=== PATIENT | female | born 1995 | race Caucasian/White ===

== ENCOUNTER 2024-05-24 16:57 | Observation (INO) | payer BC, SELFPAY ==
[2024-05-24] VITALS (7 sets, daily range): BP systolic 103–121; BP diastolic 65–76; PULSE 71–127; RESP 14–20; TEMP 36.5–36.9; O2SAT 96–100; BMI 24.7
--- NOTE | ~2024-05-24 | CT_ITS ---
EXAMINATION: CT abdomen pelvis w con DATE: 05/24/2024 20:06 INDICATION: abdominal pain TECHNIQUE: Computed tomography (CT) of the abdomen and pelvis was performed with 100 mL Omnipaque-350 intravenous contrast. Automated exposure control and iterative reconstruction technique were employe d. The dose-length product was 315.61 mGy-cm. COMPARISON: None. FINDINGS: Lower thorax: Unremarkable Liver: Normal. Biliary/Gallbladder: Gallbladder is normal. No bile duct dilation. Pancreas: No mass or duct dilation. Spleen: Normal. Adrenals:No mass. Kidneys: No suspicious mass, obstructing stone, or hydronephrosis. GI tract: No small or large bowel dilation. Appendix dilated to 1.8 cm. Large appendicolith in the ne ck of the appendix. The wall of the appendix is not discretely visualized in the region of the append icolith. The remainder of the wall is hyperemic. Mesentery/Peritoneum: No ascites, mass, or free air. Retroperitoneum: No mass. Pelvis: Moderate volume fluid in the deep pelvis and adjacent to the neck of the appendix, intermedia te density (34 HU) with the suggestion of mild peritoneal enhancement. Normal uterus and bilateral ov francis. Normal urinary bladder. Soft Tissues: Soft tissues and body wall unremarkable. Bones: No acute osseous finding. IMPRESSION: Acute appendicitis, with findings concerning for rupture. Nonsimple periappendiceal/deep pelvic fluid collection with mild rim enhancement may represent bowel content/early abscess. Results reported telephonically to Dr. Brenna Anguiano by Dr. Padilla at 8:15 PM on 05/24/2024. Reviewed, dictated and finalized at location K. [facility] IMPRESSION: Acute appendicitis, with findings concerning for rupture. Nonsimple periappendi ceal/deep pelvic fluid collection with mild rim enhancement may represent bowel content/early abscess. Results reported telephonically to Dr. Brenna Anguiano by Dr. Padilla at 8:15 PM on 05/24/2024.
[2024-05-24 19:16] LABS: Basophils Percent Auto 0.3 % (0.2-1.2); Hemoglobin 14.6 g/dL (12.0-15.0); Immature Granulocyte Absolute 0.05 K/mm3 (0.00-0.031); Immature Granulocyte Percent A 0.4 % (0-0.5); Lymphocytes Absolute Auto 0.55 K/mm3 (0.9-3.2); Lymphocytes Percent Auto 4.1 % (18.3-44.2); Mean Corpuscular Hemoglobin 31.1 pg (26-34); Mean Corpuscular Volume 91.5 fl (80-100); Mean Platelet Volume 11.6 fl (7.4-10.4); Monocytes Absolute Auto 0.8 K/mm3 (0.1-0.6); Monocytes Percent Auto 5.6 % (2.6-8.5); Neutrophils Absolute Auto 12.1 K/mm3 (1.3-6.7); Neutrophils Percent Auto 89.6 % (45.5-73.1); Platelet Count Result 234 k/mm3 (150-375); Red Cell Distribution Width 12.3 % (11.5-14.5); White Blood Count 13.5 K/mm3 (4.5-10.0)
[2024-05-24 19:26] LABS: BEDSIDEPREGUCG Negative (Negative)
[2024-05-24 19:27] LABS: Add Urine Microscopic? YES; Appearance Urine Clear (Clear); Bacteria Urine Rare /hpf; Bilirubin Urine Negative (Negative); Blood Urine Non-Hemolyzed Trace (Negative); Color Urine Dark Yellow (Yellow); Glucose Urine UA Negative (Negative); Ketones Urine 4+ mg/dL (Negative); Leukocyte Esterase Ur Negative LEU/UL (Negative); Nitrate Urine Negative (Negative); Non Pathogenic Casts 0-2; Protein Urine 1+ mg/dL (Negative); Specific Grav Ur 1.034 (1.001-1.035); Squamous Epithelial Cell Urine Occasional /hpf (Few); WBC Urine 0-5 /hpf (0-3)
[2024-05-24 19:29] LABS: Alanine Aminotransferase 14 U/L (6-35); Albumin Level 4.6 g/dL (3.5-5.1); Alkaline Phosphatase 76 U/L (38-126); Anion Gap 13 mmol/L (4-12); Aspartate Amino Transferase 17 U/L (14-36); Bilirubin,Total 1.2 mg/dL (0.2-1.3); Blood Urea Nitrogen 9 mg/dL (7-17); Calcium 9.6 mg/dL (8.4-10.2); Carbon Dioxide 19 mmol/L (22-30); Chloride 105 mmol/L (98-107); Estimated CRCL calculation 98 ml/min; Estimated Glomerular Filt Rate > 60; Glucose 109 mg/dL (65-110); Lipase 57 U/L (23-300); Potassium 3.6 mmol/L (3.4-5.0); Sodium 137 mmol/L (137-145)
--- NOTE | 2024-05-24 19:33 | ED_ITS ---
HPI - General Adult General Chief complaint: Abdominal Pain Stated complaint: abdominal pain Time Seen by Provider: 05/24/24 19:08 History of Present Illness HPI narrative: patient is a 28-year-old female presents emergency department with chief complaint of abdominal pain 8 patient reports that on Thursday she started having diarrhea started ectopic because he had vomited the patient states the diarrhea is tapered off and she had 1 episode of vomiting prior to arrival in the emergency department the patient states that now she has a severe pain that has developed in the lower quadrants of her abdomen the patient reports that it is worsened by movement and improved by rest. The patient denies fever reports no prior surgery on her abdomen reports that she is currently on Depo Related Data Allergies Allergy/AdvReac Type Severity Reaction Status Date / Time No Known Allergies Allergy Verified 05/24/24 19:24 Review of Systems Review of Systems: A 10 system review of systems was completed on the patient and is negative exc ept for what is stated in the HPI. Nursing and ancillary documentation was reviewed. Exam Narrative: GENERAL: Well-appearing, well-nourished, and in no acute distress. HEAD: Normocephalic, atraumatic. EYES: PERRLA and EOMI. ENT: Nares clear, no rhinorrhea or epistaxis. Mucous membranes moist. NECK: Supple. CHEST: Clear to auscultation. No respiratory distress. HEART: Regular rate and rhythm. No murmur heard. Normal peripheral pulses. ABDOMEN: Soft, diffuse tenderness to palpation, nondistended, normal active bowel sounds. EXTREMITIES: Normal range of motion. No edema. SKIN: Warm, dry, no rash. NEURO: No focal deficits. Alert and oriented x3. PSYCH: Normal mood and affect. Course Vital Signs Vital signs: Vital Signs Temperature 36.5 C 05/24/24 17:00 Pulse Rate 127 H 05/24/24 17:00 Respiratory Rate 20 05/24/24 17:00 Blood Pressure 118/73 05/24/24 17:00 Pulse Oximetry 98 05/24/24 17:00 Temperature 36.5 C 05/24/24 17:00 Pulse Rate 127 H 05/24/24 17:00 Respiratory Rate 20 05/24/24 17:00 Blood Pressure 118/73 05/24/24 17:00 Pulse Oximetry 98 05/24/24 17:00 Medical Decision Making [facility] Narrative Medical decision making narrative: differential diagnosis includes intra-abdominal infection, gastroenteritis, colitis, appendicitis, diverticulitis laboratory studies were obtained on the patient showed white count of 13.5 electrolytes are within normal limits urinalysis showed 11 20 red blood cells but no white blood cells CT scan of the abdomen pelvis showed Acute appendicitis, with findings concerning for rupture. Nonsimple periappendiceal/deep pelvic fluid collection with mild rim enhancement may represent bowel content/early abscess. patient given a dose of Zosyn in the emergency department the case was discussed with Dr. Mcclellan who accepted patient to the surgical service Vital Signs Vital Signs: Vital Signs Temperature 36.5 C 05/24/24 17:00 Pulse Rate 127 H 05/24/24 17:00 Respiratory Rate 20 05/24/24 17:00 Blood Pressure 118/73 05/24/24 17:00 Pulse Oximetry 98 05/24/24 17:00 Temperature 36.5 C 05/24/24 17:00 Pulse Rate 127 H 05/24/24 17:00 Respiratory Rate 20 05/24/24 17:00 Blood Pressure 118/73 05/24/24 17:00 Pulse Oximetry 98 05/24/24 17:00 Lab Data 05/24/24 19:00 05/24/24 19:00 Labs: Lab Results 05/24/24 05/24/24 05/24/24 Range/Units 19:00 19:06 19:24 WBC 13.5 H (4.5-10.0) K/mm3 RBC 4.70 (4.2-5.4) M/mm3 Hgb 14.6 (12.0-15.0) g/dL Hct 43.0 (37.0-47.0) % MCV 91.5 (80-100) fl MCH 31.1 (26-34) pg MCHC 34.0 (32-36) g/dl RDW 12.3 (11.5-14.5) % Plt Count 234 (150-375) k/mm3 MPV 11.6 H (7.4-10.4) fl Immature Gran % (Auto) 0.4 (0-0.5) % Neut % (Auto) 89.6 H (45.5-73.1) % Lymph % (Auto) 4.1 L (18.3-44.2) % [place] % (Auto) 5.6 (2.6-8.5) % Eos % (Auto) 0.0 (0-4.4) % Baso % (Auto) 0.3 (0.2-1.2) % Lymph # (Auto) 0.55 L (0.9-3.2) K/mm3 [place] # (Auto) 0.8 H (0.1-0.6) K/mm3 Eos # (Auto) 0.0 (0-0.3) K/mm3 Baso # (Auto) 0.0 (0.0-0.1) K/mm3 Abs Immat Gran (auto) 0.05 H (0.00-0.031) K/mm3 Absolute Neuts (auto) 12.1 H (1.3-6.7) K/mm3 Absolute Nucleated RBC 0.000 (0.0-0.012) K/mm3 Nucleated RBC % 0.0 (0.0-0.2) % Sodium 137 (137-145) mmol/L Potassium 3.6 (3.4-5.0) mmol/L Chloride 105 (98-107) mmol/L Carbon Dioxide 19 L (22-30) mmol/L Anion Gap 13 H (4-12) mmol/L BUN 9 (7-17) mg/dL Creatinine 0.70 (0.7-1.0) mg/dL Estim Creat Clear Calc 98 ml/min Estimated GFR > 60 (59 - ) Glucose 109 (65-110) mg/dL Calcium 9.6 (8.4-10.2) mg/dL Total Bilirubin 1.2 (0.2-1.3) mg/dL AST 17 (14-36) U/L ALT 14 (6-35) U/L Alkaline Phosphatase 76 (38-126) U/L Total Protein 8.0 (6.3-8.2) g/dL Albumin 4.6 (3.5-5.1) g/dL Lipase 57 (23-300) U/L Urine Color Dark yellow (Yellow) Urine Appearance Clear (Clear) Urine pH 6.0 (5.0-9.0) Ur Specific [place] 1.034 (1.001-1.035) Urine Protein 1+ H (Negative) mg/dL Urine Glucose (UA) Negative (Negative) mg/dL Urine Ketones 4+ H (Negative) mg/dL Ur Blood (Man) Non-hemolyzed trace H (Negative) Urine Nitrate Negative (Negative) Urine Bilirubin Negative (Negative) Urine Urobilinogen 1.0 (<2.0) mg/dL Leukocyte Esterase Rfl Negative (Negative) CLAUDIO/UL Urine RBC 11-20 H (0-2) /hpf Urine WBC 0-5 (0-3) /hpf Ur Squamous Epith Cells Occasional (Few) /hpf Urine Bacteria Rare /hpf Urine Casts 0-2 POC Urine HCG, Qual Negative (Negative) Discharge Plan Discharge Clinical Impression: Acute appendicitis Patient Disposition: Still a Patient Condition: Stable Instructions: Antibiotic Form Follow-up/Referrals: UNKNOWN,DOCTOR [Primary Care Provider] - Time of Disposition: 20:23
[2024-05-24] MEDS: ONDANSETRON INJ 4 MG/2 ML VIAL IV PUSH (19:49)
[2024-05-24] MEDS: SODIUM CHLORIDE 0.9% IV 1,000 ML 999 ML IV CONT (19:49)
[2024-05-24] MEDS: MORPHINE SULFATE (*CRX) 4 MG/ML INJ IV PUSH ×2 (19:53→21:48)
[2024-05-24] MEDS: Please add drug allergy info to patient profile. 1 EACH XX (19:54)
[2024-05-24] MEDS: PIPERACILLN/TAZ 3.375GM/NS50ML 3.375 GM/50 ML BAG IVPB (20:58)
--- NOTE | 2024-05-24 21:31 | ADMGEN ---
This patient, Holly Faria, was admitted to 3 [facility] Room 311-01. Patient/family oriented to hospital policies and general routines including ID bracelet, bed and alarms, visiting hours, pain management, procedures, bathroom and other care routines, personal items, smoking policy, room service/diet, and visiting hours. Information on how to activate the Rapid Response Team has been discussed. Patient/Family are encouraged to report perceived risks to care and to ask questions if they do not understand what they are told or what they should do.
[2024-05-24] MEDS: SODIUM CHLORIDE 0.9% IV 1,000 ML 125 ML IV CONT (21:51)
--- NOTE | 2024-05-24 22:02 | PC.NURSE ---
Admission report provided to PATTI Breaux.
[2024-05-25] VITALS (13 sets, daily range): BP systolic 94–122; BP diastolic 50–75; PULSE 74–103; RESP 14–20; TEMP 36.1–37.3; O2SAT 96–100
[2024-05-25] MEDS: ALPRAZolam (*CRX) 0.25 MG TABLET PO (01:48)
[2024-05-25] MEDS: oxyCODONE/ACETAMINOPHEN (*CRX) 10-325 MG TABLET 1 TAB PO ×2 (01:48→05:33)
[2024-05-25] MEDS: PIPERACILLN/TAZ 3.375GM/NS50ML 3.375 GM/50 ML BAG IVPB ×4 (01:51→19:59)
[2024-05-25] MEDS: SODIUM CHLORIDE 0.9% IV 1,000 ML 125 ML IV CONT (05:34)
[2024-05-25] MEDS: HYDROmorphone HCL INJ (*CRX) 1 MG/ML SYR IV PUSH ×4 (07:45→23:30)
--- NOTE | 2024-05-25 09:58 | P.HP_ITS ---
H&P: HPI History of Present Illness Date/Time: 05/25/24 09:58 Chief Complaint: Right lower quadrant abdominal pain Narrative: This is a 28-year-old who presented to the ED last night for evaluation of right lower quadrant abdominal pain. She reports having an onset of diarrhea, nausea, and vomiting 3 days ago. A few hours after symptoms started, she developed periumbilical and upper abdominal pain. She presented to an urgent care who provided her with anti-nausea medication. Her nausea, vomiting, and diarrhea improved, but her abdominal pain got worse. Over the next 2 days, her pain progressively became worse and was aggravated with any movement or walking. She called her PCP, who recommended going to the ED. Labs showed a white blood cell count [id number]. In the ED, she was afebrile and tachycardic with a heart rate in the 120s. CT scan of the abdomen and pelvis showed acute appendicitis with findings concerning for rupture, and a possible periappendiceal/deep pelvic fluid collection with that may represent an early abscess. She had a negative urine test. UA showed 1+ leukocytes and mildly elevated wbc's. She denies any urinary symptoms. Blood cultures were ordered and she was admitted for surgical evaluation. She has been started on IV Zosyn. She reports no pain relief with morphine or Dilaudid. She is very uncomfortable. Denies any nausea. No previous abdominal surgeries. Review of Systems Review of Systems: All systems reviewed & are unremarkable except as noted in HPI and below PMFSH Past Medical History Medical History Anxiety and depression Asthma Surgical History Surgical History History of ankle surgery Family History Family History Father Diabetes mellitus Hypertension Social History Social History Smoking status: Never smoker Alcohol intake: current Drinks per week: 2 Substance use: never Do You Feel Safe in your Home?: Yes Lack of Transportation: No Lack of Food: Never True Current Housing: I Have Housing Concerned About Future Housing: No Difficulty Paying Gas/Electric Bills: No Difficulty Paying for Meds: No Currently Unemployed: No Education: Master's Degree or Higher Difficulty w/ Childcare or Family Care: No Spiritual care concerns: No Meds Home Medications and Allergies Home Medications Medication Instructions Recorded Confirmed Type divalproex 250 mg tablet,delayed 252 mg PO DAILY 05/24/24 05/24/24 History release medroxyprogesterone 150 mg/mL 150 mg IM [id number] 05/24/24 05/24/24 History intramuscular syringe vilazodone 20 mg tablet 20 mg PO DAILY 05/24/24 05/24/24 History Allergies Allergy/AdvReac Type Severity Reaction Status Date / Time No Known Allergies Allergy Verified 05/24/24 19:24 Vital Signs Vital Signs - 24 hr 05/24/24 17:00 05/24/24 18:43 05/24/24 18:45 Temperature 97.7 F Pulse Rate 127 H Respiratory Rate 20 Blood Pressure 118/73 103/68 106/65 Pulse Oximetry 98 96 98 Oxygen Delivery 05/24/24 19:01 05/24/24 20:19 05/24/24 20:31 Temperature Pulse Rate 71 Respiratory Rate 14 Blood Pressure 109/76 115/66 121/74 Pulse Oximetry 100 98 Oxygen Delivery 05/24/24 21:42 05/24/24 22:39 05/25/24 05:04 Temperature 98.5 F 97.9 F Pulse Rate 88 82 Respiratory Rate 14 14 Blood Pressure 105/66 99/50 L Pulse Oximetry 98 98 Oxygen Delivery Room Air Exam Const: General: comfortable and no acute distress Nutritional Appearance: average body habitus Orientation/consciousness: patient oriented x3 HENMT: Head: normocephalic and atraumatic Ears: hearing grossly normal bilaterally Mouth: Yes moist mucous membranes Eyes: General: appearance normal, both eyes and all related structures Pupils: Equal, round and reactive pupils present Neck: Neck: normal visual inspection and full ROM Resp: Effort & Inspection: no respiratory distress Auscultation: clear to auscultation bilaterally Cardio: Rate: regular rate Rhythm: regular rhythm Heart sounds: S1 normal heart sound present and S2 normal heart sound present GI: Inspection: non-distended GI Palp: Yes Soft to palpation, Yes Tenderness to palpation present (GI) (diffuse tenderness with more focal TTP/guarding in RLQ), Yes Guarding due to palpation present (GI) (RLQ), Yes No hepatosplenomegaly present, No Hernia present and Yes Rebound tenderness present Auscultation: Hypoactive bowel sounds present Skin: General skin exam: normal color Neuro: General: moves all extremities and no focal motor deficits Speech: normal speech Motor exam (neuro): 5/5 motor strength present throughout Extrem: General: normal to inspection and no edema Psych: Mental Status: mental status grossly normal Attitude: cooperative Insight: Good insight present (Psych) Judgement: Good judgement present (Psych) H&P: Results Labs Labs: Short CBC 05/24/24 Range/Units 19:00 WBC 13.5 H (4.5-10.0) K/mm3 Hgb 14.6 (12.0-15.0) g/dL Hct 43.0 (37.0-47.0) % Plt Count 234 (150-375) k/mm3 BMP 05/24/24 19:00 Sodium 137 Potassium 3.6 Chloride 105 Carbon Dioxide 19 L BUN 9 Creatinine 0.70 Glucose 109 Calcium 9.6 Liver Function 05/24/24 Range/Units 19:00 Total Bilirubin 1.2 (0.2-1.3) mg/dL AST 17 (14-36) U/L ALT 14 (6-35) U/L Alkaline Phosphatase 76 (38-126) U/L Albumin 4.6 (3.5-5.1) g/dL Urine 05/24/24 Range/Units 19:06 Urine Color Dark yellow (Yellow) Urine Appearance Clear (Clear) Urine pH 6.0 (5.0-9.0) Ur Specific [place] 1.034 (1.001-1.035) Urine Protein 1+ H (Negative) mg/dL Urine Glucose (UA) Negative (Negative) mg/dL Imaging CT scan - abdomen: Radiologist's impression: ITS Impressions Abdomen/Pelvis CT 05/24/24 20:08 IMPRESSION: Acute appendicitis, with findings concerning for rupture. Nonsimple periappendiceal/deep pelvic fluid collection with mild rim enhancement may represent bowel content/early abscess. Results reported telephonically to Dr. Brenna Anguiano by Dr. Padilla at 8:15 PM on 05/24/2024. Assessment and Plan Assessment and plan (1) Acute appendicitis: Code(s): K35.80 - Unspecified acute appendicitis Status: Acute Assessment and Plan: * CT scan reviewed and discussed with the patient. There is evidence of acute appendicitis, likely perforated with possible abscess. We discussed treatment options in detail. Discussed the case with Dr. Mcclellan who recommends proceeding with a laparoscopic appendectomy, possible open. Description of the procedure, risks, benefits, alternatives, and expected recovery were discussed. She agrees to proceed with surgery * Continue IV antibiotics, IV fluids, NPO, and proceed for urgent appendectomy today * Will add ketorolac IV to help with pain control (2) Sepsis: Code(s): A41.9 - Sepsis, unspecified organism Status: Acute Assessment and Plan: * Secondary to perforated appendicitis. Continue IV antibiotics. Blood cultures pending. Proceed to OR for source control. Plan I have discussed the patient's case and plan of care with Dr. Mcclellan.
[2024-05-25] MEDS: KETOROLAC 30 MG/ML VIAL (*BKC) IV PUSH (10:52)
--- NOTE | 2024-05-25 12:18 | WPDHPUPDATE1 ---
History and Physical Update Update Date/Time: 05/25/24 12:18 History and Physical has been reviewed, including an updated exam of the patient. There are NO changes in the patient's condition. Risks, benefits, and alternatives have been discussed and questions answered. Patient agrees to proceed with procedure.
[2024-05-25] MEDS: SODIUM CHLORIDE 0.9% IV 1,000 ML 150 ML IV CONT (13:50)
--- NOTE | 2024-05-25 14:15 | PC.NURSE ---
To OR via stretcher.
[2024-05-25] MEDS: LACTATED RINGERS 1,000 ML 30 ML IV CONT ×2 (14:30→16:03)
[2024-05-25] MEDS: ACETAMINOPHEN 500 MG TABLET 1000 MG PO (14:31)
--- NOTE | 2024-05-25 14:45 | WPDANESEPPF ---
Anes - Initial Pre Proc Eval Procedure: Operation Date: 05/25/24 16:00 Proposed Procedures p Laparoscopic Appendectomy - Araceli Mcclellan MD Date/Time: 05/25/24 14:45 Surgeon: Araceli Mcclellan MD Pre Op Diagnosis: Acute appendicitis Patient Data Age: 28 Gender: F Height: 1.68 m Weight: 69.4 kg Last Vital Signs Temp 98.7 F 05/25/24 11:00 Pulse 89 05/25/24 11:00 Resp 16 05/25/24 11:00 BP 122/75 05/25/24 11:00 Pulse Ox 100 05/25/24 11:00 O2 Del Method Room Air 05/25/24 08:00 Allergies Allergy/AdvReac Type Severity Reaction Status Date / Time No Known Allergies Allergy Verified 05/24/24 19:24 Home Medications Medication Instructions Recorded Confirmed Type divalproex 250 mg tablet,delayed 252 mg PO DAILY 05/24/24 05/24/24 History release medroxyprogesterone 150 mg/mL 150 mg IM [id number] 05/24/24 05/24/24 History intramuscular syringe vilazodone 20 mg tablet 20 mg PO DAILY 05/24/24 05/24/24 History Laboratory Tests 05/24/24 05/24/24 05/24/24 19:00 19:06 19:24 WBC 13.5 H K/mm3 (4.5-10.0) RBC 4.70 M/mm3 (4.2-5.4) Hgb 14.6 g/dL (12.0-15.0) Hct 43.0 % (37.0-47.0) MCV 91.5 fl (80-100) MCH 31.1 pg (26-34) MCHC 34.0 g/dl (32-36) RDW 12.3 % (11.5-14.5) Plt Count 234 k/mm3 (150-375) MPV 11.6 H fl (7.4-10.4) Immature Gran % (Auto) 0.4 % (0-0.5) Neut % (Auto) 89.6 H % (45.5-73.1) Lymph % (Auto) 4.1 L % (18.3-44.2) [place] % (Auto) 5.6 % (2.6-8.5) Eos % (Auto) 0.0 % (0-4.4) Baso % (Auto) 0.3 % (0.2-1.2) Lymph # (Auto) 0.55 L K/mm3 (0.9-3.2) [place] # (Auto) 0.8 H K/mm3 (0.1-0.6) Eos # (Auto) 0.0 K/mm3 (0-0.3) Baso # (Auto) 0.0 K/mm3 (0.0-0.1) Abs Immat Gran (auto) 0.05 H K/mm3 (0.00-0.031) Absolute Neuts (auto) 12.1 H K/mm3 (1.3-6.7) Absolute Nucleated RBC 0.000 K/mm3 (0.0-0.012) Nucleated RBC % 0.0 % (0.0-0.2) Sodium 137 mmol/L (137-145) Potassium 3.6 mmol/L (3.4-5.0) Chloride 105 mmol/L (98-107) Carbon Dioxide 19 L mmol/L (22-30) Anion Gap 13 H mmol/L (4-12) BUN 9 mg/dL (7-17) Creatinine 0.70 mg/dL (0.7-1.0) Estim Creat Clear Calc 98 ml/min Estimated GFR > 60 (59 - ) Glucose 109 mg/dL (65-110) Calcium 9.6 mg/dL (8.4-10.2) Total Bilirubin 1.2 mg/dL (0.2-1.3) AST 17 U/L (14-36) ALT 14 U/L (6-35) Alkaline Phosphatase 76 U/L (38-126) Total Protein 8.0 g/dL (6.3-8.2) Albumin 4.6 g/dL (3.5-5.1) Lipase 57 U/L (23-300) Urine Color Dark yellow (Yellow) Urine Appearance Clear (Clear) Urine pH 6.0 (5.0-9.0) Ur Specific [place] 1.034 (1.001-1.035) Urine Protein 1+ H mg/dL (Negative) Urine Glucose (UA) Negative mg/dL (Negative) Urine Ketones 4+ H mg/dL (Negative) Ur Blood (Man) Non-hemolyzed trace H (Negative) Urine Nitrate Negative (Negative) Urine Bilirubin Negative (Negative) Urine Urobilinogen 1.0 mg/dL (<2.0) Leukocyte Esterase Rfl Negative CLAUDIO/UL (Negative) Urine RBC 11-20 H /hpf (0-2) Urine WBC 0-5 /hpf (0-3) Ur Squamous Epith Cells Occasional /hpf (Few) Urine Bacteria Rare /hpf Urine Casts 0-2 POC Urine HCG, Qual Negative (Negative) Patient hx anesthesia problems: none Family hx anesthesia problems: none Results Review: All pre-operative results and documents have been reviewed as part of the pre-operative evaluation. [facility] Past Medical History Medical History Anxiety and depression Asthma Surgical History Surgical History History of ankle surgery Family History Family History Father Diabetes mellitus Hypertension Social History Social History Smoking status: Never smoker Alcohol intake: current Drinks per week: 2 Substance use: never Do You Feel Safe in your Home?: Yes Lack of Transportation: No Lack of Food: Never True Current Housing: I Have Housing Concerned About Future Housing: No Difficulty Paying Gas/Electric Bills: No Difficulty Paying for Meds: No Currently Unemployed: No Education: Master's Degree or Higher Difficulty w/ Childcare or Family Care: No Spiritual care concerns: No Anes - Eval Final PreProcedure Day of Procedure 05/25/24 14:45 Patient weight: normal Heart: regular rate and rhythm Lungs: clear to auscultation Airway: Mallampati scale class II Neurological: alert and oriented Last oral intake: >/= 8 hours ASA classification: II Emergent: yes Anesthetic plan: proceed Anesthesia type and monitoring: general ETT and standard monitoring Results Review: All pre-operative results and documents have been reviewed as part of the pre-operative evaluation. Overall healthy 28 yo female. Pt has had recent URI w chronic cough approx 2 weeks ago but improving. Now w acute appendicitis. Informed Consent: The patient's anesthetic plan and its attendant risks and benefits were discussed with the patient/family/POA. Questions were solicited and answers provided to the satisfaction of the patient/family/POA.
[2024-05-25] MEDS: BUPIVACAINE/EPINEPHRINE 0.5% 50 ML VIAL 30 ML INFILTRATE (15:31)
--- NOTE | 2024-05-25 16:07 | P.OP_ITS ---
Procedure Note - Detailed Date of Procedure 05/25/24 Pre-op Diagnosis Acute perforated appendicitis Post-op Diagnosis Same Procedure Performed laparoscopic appendectomy, washout of intra-abdominal abscess Surgeon Araceli Mcclellan MD Anesthesia General and Local Indications 28-year-old female presenting to the emergency department complaining of severe right lower quadrant abdominal pain. Workup, including imaging, was significant for perforated acute appendicitis with early abscess. Findings acute perforated appendicitis with pelvic abscess Description of Procedure The patient was taken to the operating room and placed in the supine position. After adequate induction of general anesthesia, the patient was prepped and draped in the normal sterile fashion. A time-out was then done to verify the patient's identity, as well as the procedure being performed. I began by making a 5 mm incision in the infraumbilical region, through this a Veress needle was placed in the peritoneal cavity. CO2 gas was then insufflated and after adequate pneumoperitoneum was achieved the Veress needle was removed. Then placed a 5 mm Optiview trocar under direct visualization into the peritoneal cavity. I then insufflated through this trocar site and the endoscope was placed into the trocar. Under direct visualization, I placed a further 5 mm suprapubic port as well as an additional 12 mm port in the left lower abdomen. There was noted to be some free fluid in the pelvis above the uterus. This fluid was murky appearing and was not well organized. I was able to suction out this fluid. Underneath the uterus the cecum was noted to be adhered, as well as the terminal ileum. Upon pulling the terminal ileum and cecum out of this cavity, I was able to encounter a abscess cavity. Approximately 30 cc of p urulent material was drained at this point. I was also able to copiously irrigate this area and clean out this cavity. At this point I retracted the cecum both medially and superiorly allowing me to expose the appendix. The appendix was noted to be very dilated and inflamed. There was some adhesions of the appendix to the ilium and I was able to bluntly dissect the appendix from these adhesions. Of note, no obvious perforation was noted within the appendix grossly. I was able to locate the base of the appendix with the cecum. I created a window with the [place] dissector between the appendix itself and the mesoappendix. I then transected the mesoappendix with a white vascular staple load. The Endo-KARLA was then reloaded with a blue staple load and I transected the base of the appendix. Once the specimen was completely detached, an endo- pouch was placed into the 12 mm port site and the specimen was removed through the endo-pouch. The appendiceal specimen will be sent to pathology for further review. I then copiously irrigated the right lower quadrant. Hemostasis was noted at both staple lines no other pathology was seen in this area. I then moved the camera to the suprapubic port to check our its port of entry. No iatrogenic injury or other pathology was noted in the upper abdomen. I then closed the 12 mm port site with a Rajendra code and 0 Vicryl suture under direct visualization. At this point, the abdomen was desufflated and all ports were removed. All port sites were closed with 4 Monocryl subcuticular suture. Dermabond was placed on all wounds. The patient tolerated the procedure well and was extubated in the operating room postop. She will be sent to the recovery room in stable condition. Estimated Blood Loss 10 Drains No Packing No Pathology Yes Complications No immediate complications Condition Stable Disposition PACU [facility] Billing Surgery - Charge Forward: Surgery Billing
[2024-05-25] MEDS: ONDANSETRON INJ 4 MG/2 ML VIAL IV PUSH (17:31)
[2024-05-25] MEDS: HYDROcodone/acetaminophen (*CRX) 5-325 MG TABLET 1 TAB PO (19:58)
[2024-05-25] MEDS: DIVALPROEX SODIUM DR 250 MG TABEC PO (19:59)
[2024-05-26] VITALS: BP 96/61; PULSE 59; RESP 14; TEMP 36.1; O2SAT 97
[2024-05-26] MEDS: HYDROcodone/acetaminophen (*CRX) 5-325 MG TABLET 1 TAB PO ×3 (02:48→18:17)
[2024-05-26] MEDS: PIPERACILLN/TAZ 3.375GM/NS50ML 3.375 GM/50 ML BAG IVPB ×4 (02:49→20:09)
[2024-05-26 04:00] VITALS: BP 111/75; PULSE 93; RESP 14; TEMP 36.6; O2SAT 100
[2024-05-26 06:46] LABS: Hematocrit 36.8 % (37.0-47.0); Hemoglobin 11.8 g/dL (12.0-15.0); Mean Corpuscular HGB Conc 32.1 g/dl (32-36); Mean Corpuscular Hemoglobin 30.6 pg (26-34); Mean Corpuscular Volume 95.6 fl (80-100); Mean Platelet Volume 12.4 fl (7.4-10.4); Platelet Count Result 173 k/mm3 (150-375); Red Blood Count 3.85 M/mm3 (4.2-5.4); Red Cell Distribution Width 12.6 % (11.5-14.5); White Blood Count 13.7 K/mm3 (4.5-10.0)
[2024-05-26 06:58] LABS: Anion Gap 10 mmol/L (4-12); Blood Urea Nitrogen 7 mg/dL (7-17); Calcium 8.6 mg/dL (8.4-10.2); Carbon Dioxide 23 mmol/L (22-30); Chloride 104 mmol/L (98-107); Estimated CRCL calculation 87 ml/min; Estimated Glomerular Filt Rate > 60; Glucose 117 mg/dL (65-110); Potassium 3.5 mmol/L (3.4-5.0); Sodium 137 mmol/L (137-145)
[2024-05-26 07:54] VITALS: BP 117/73; PULSE 77; RESP 18; TEMP 36.1; O2SAT 100
[2024-05-26] MEDS: DIVALPROEX SODIUM DR 250 MG TABEC PO ×2 (08:28→20:09)
--- NOTE | 2024-05-26 09:57 | WPDANESPN ---
Anes - Prog Note Post-Op Date/Time: 05/26/24 09:57 Cardiovascular status: normal Respiratory status: normal Airway patency: baseline Mental status: baseline Post-Op hydration status: normal Vital Signs: Last Vital Signs Temp 36.1 C L 05/26/24 07:54 Pulse 77 05/26/24 07:54 Resp 18 05/26/24 07:54 BP 117/73 05/26/24 07:54 Pulse Ox 100 05/26/24 07:54 O2 Del Method Room Air 05/25/24 17:00 O2 Flow Rate 8 05/25/24 16:15 Pain Score (VAS): 09/05 I/O: Intake & Output 05/25/24 05/26/24 05/26/24 23:59 07:59 15:59 Intake Total 2280 450 Balance 2280 450 Laboratory Tests 05/26/24 06:13 05/26/24 06:13 05/26/24 06:13 WBC 13.7 H RBC 3.85 L Hgb 11.8 L Hct 36.8 L MCV 95.6 MCH 30.6 MCHC 32.1 RDW 12.6 Plt Count 173 MPV 12.4 H Sodium 137 Potassium 3.5 Chloride 104 Carbon Dioxide 23 Anion Gap 10 BUN 7 Creatinine 0.80 Estim Creat Clear Calc 87 Estimated GFR > 60 Glucose 117 H Calcium 8.6 Microbiology 05/24/24 20:58 Blood Blood Culture - Preliminary 05/24/24 20:58 Blood Blood Culture - Preliminary Post-procedural complaints: none Patient Feedback: Patient satisfied with anesthetic care.
--- NOTE | 2024-05-26 10:15 | WPDPN ---
Progress Note: A&P Assessment and Plan (1) Acute appendicitis: Code(s): K35.80 - Unspecified acute appendicitis Status: Acute Assessment and Plan: Postop day 1 after laparoscopic appendectomy for perforated appendicitis[place] [address]. No fever. She is still having some pain in the lower abdomen likely due to the peritonitis from the appendicitis. This should improve. Continue IV antibiotics while she is here in the hospital today. Repeat CBC tomorrow. Hopefully home tomorrow on oral antibiotics for another week. Subjective Date/time seen: 05/26/24 10:15 Interval history: Postop day 1 after laparoscopic appendectomy for perforated appendicitis[place] [address]. No fever. Patient still having some pain in right lower quadrant especially around her port sites. No nausea or vomiting. She tolerated some solid food this morning. Exam GI: Other: Abdomen is soft and minimally distended. Port site incisions are healing well without drainage. Skin glue in place. Generalized peritoneal signs. Objective Data Vital Signs Vital Signs: Vital Signs - 24 hr 05/25/24 11:00 05/25/24 14:30 05/25/24 14:34 Temperature 37.1 C 37.3 C 36.9 C Pulse Rate 89 92 94 Respiratory Rate 16 18 16 Blood Pressure 122/75 101/53 L 94/68 L Pulse Oximetry 100 98 100 Oxygen Delivery Oxygen Flow Rate 05/25/24 16:03 05/25/24 16:15 05/25/24 16:30 Temperature 36.6 C Pulse Rate 103 H 100 100 Respiratory Rate 20 18 18 Blood Pressure 106/59 L 107/66 111/64 Pulse Oximetry 100 100 100 Oxygen Delivery Simple Face Mask Simple Face Mask Room Air Oxygen Flow Rate 8 8 05/25/24 16:45 05/25/24 17:00 05/25/24 17:20 Temperature 36.6 C Pulse Rate 87 90 85 Respiratory Rate 20 18 16 Blood Pressure 116/72 110/68 106/66 Pulse Oximetry 98 97 97 Oxygen Delivery Room Air Room Air Oxygen Flow Rate 05/25/24 17:35 05/25/24 18:05 05/25/24 20:00 Temperature 36.6 C 37.0 C 36.1 C L Pulse Rate 83 78 74 Respiratory Rate 16 16 14 Blood Pressure 100/63 100/65 116/74 Pulse Oximetry 96 96 99 Oxygen Delivery Oxygen Flow Rate 05/26/24 00:00 05/26/24 04:00 05/26/24 07:54 Temperature 36.1 C L 36.6 C 36.1 C L Pulse Rate 59 L 93 77 Respiratory Rate 14 14 18 Blood Pressure 96/61 L 111/75 117/73 Pulse Oximetry 97 100 100 Oxygen Delivery Oxygen Flow Rate Intake/Output Intake/Output: Intake & Output 05/23/24 05/24/24 05/25/24 05/26/24 23:59 23:59 23:59 23:59 Intake Total 1000 4457.1 730 Balance 1000 4457.1 730 Meds/Results Medications: Active Medications Generic Name Dose Route Start Last Admin Trade Name Freq PRN Reason Stop Dose Admin Hydrocodone Bitart/Acetaminophen 1 tab 05/25/24 17:05 05/26/24 07:35 Hydrocodone/Acetaminophen (*Crx) 5-325 Mg Tablet PO 1 tab Q4H PRN Administration Pain Rated 4-6 Divalproex Sodium 250 mg 05/25/24 21:00 05/26/24 08:[address] 250 Mg Tabec PO 250 mg Q12HR ALIRIO Administration Hydromorphone HCl 1 mg 05/24/24 22:47 05/25/24 23:30 Hydromorphone Hcl Inj (*Crx) 1 Mg/Ml Syr IV PUSH 1 mg Q2H PRN Administration Pain Rated 7-10 Piperacillin/Tazobactam/Dextrose 3.375 gm in 50 mls @ 100 mls/hr 05/24/24 03:00 05/26/24 08:28 Zosyn 3.375 Gm/Ns 50 Ml IVPB 100 mls/hr Q6H ALIRIO Administration Medroxyprogesterone Acetate 150 mg 06/29/24 09:00 Medroxyprogesterone Acetate Im 150 Mg/Ml Syr IM [id number] [facility] Miscellaneous Information 1 each 05/25/24 00:01 Vilazodone 20 Mg Tablet Is Nonformulary, Can Patient Bring From Home? XX 06/24/24 00:00 CLARIFY [facility] Non-Formulary Medication 20 mg 05/26/24 09:00 Vilazodone PO 06/25/24 08:59 DAILY [facility] Ondansetron HCl 4 mg 05/24/24 20:29 05/25/24 17:31 Ondansetron Inj 4 Mg/2 Ml Vial IV PUSH 4 mg Q4H PRN Administration Nausea Radiology Results: ITS Impressions Abdomen/Pelvis CT 05/24/24 20:08 IMPRESSION: Acute appendicitis, with findings concerning for rupture. Nonsimple periappendiceal/deep pelvic fluid collection with mild rim enhancement may represent bowel content/early abscess. Results reported telephonically to Dr. Brenna Anguiano by Dr. Padilla at 8:15 PM on 05/24/2024. Labs Labs: Laboratory Results - last 24 hr 05/26/24 06:13 WBC 13.7 H RBC 3.85 L Hgb 11.8 L Hct 36.8 L MCV 95.6 MCH 30.6 MCHC 32.1 RDW 12.6 Plt Count 173 MPV 12.4 H Sodium 137 Potassium 3.5 Chloride 104 Carbon Dioxide 23 Anion Gap 10 BUN 7 Creatinine 0.80 Estim Creat Clear Calc 87 Estimated GFR > 60 Glucose 117 H Calcium 8.6
[2024-05-26 12:00] VITALS: BP 136/80; PULSE 98; RESP 18; TEMP 36.7; O2SAT 97
[2024-05-26] MEDS: HYDROmorphone HCL INJ (*CRX) 1 MG/ML SYR IV PUSH ×2 (14:55→23:54)
[2024-05-26 16:00] VITALS: BP 105/65; PULSE 104; RESP 18; TEMP 37; O2SAT 98
[2024-05-26 22:00] VITALS: BP 94/55; PULSE 85; RESP 18; TEMP 36.7; O2SAT 100
[2024-05-26] MEDS: ONDANSETRON INJ 4 MG/2 ML VIAL IV PUSH (23:55)
[2024-05-27] MEDS: PIPERACILLN/TAZ 3.375GM/NS50ML 3.375 GM/50 ML BAG IVPB ×2 (02:34→09:05)
[2024-05-27] MEDS: HYDROcodone/acetaminophen (*CRX) 5-325 MG TABLET 1 TAB PO ×3 (04:15→12:49)
[2024-05-27 06:00] VITALS: BP 104/61; PULSE 95; RESP 16; TEMP 36.8; O2SAT 97
[2024-05-27 06:25] LABS: Basophils Percent Auto 0.2 % (0.2-1.2); Eosinophils Absolute Auto 0.1 K/mm3 (0-0.3); Eosinophils Percent Auto 0.9 % (0-4.4); Hematocrit 32.5 % (37.0-47.0); Hemoglobin 10.7 g/dL (12.0-15.0); Immature Granulocyte Absolute 0.04 K/mm3 (0.00-0.031); Immature Granulocyte Percent A 0.4 % (0-0.5); Lymphocytes Absolute Auto 1.59 K/mm3 (0.9-3.2); Lymphocytes Percent Auto 16.2 % (18.3-44.2); Mean Corpuscular HGB Conc 32.9 g/dl (32-36); Mean Corpuscular Hemoglobin 30.8 pg (26-34); Mean Corpuscular Volume 93.7 fl (80-100); Mean Platelet Volume 12.6 fl (7.4-10.4); Monocytes Absolute Auto 0.4 K/mm3 (0.1-0.6); Monocytes Percent Auto 4.4 % (2.6-8.5); Neutrophils Absolute Auto 7.6 K/mm3 (1.3-6.7); Neutrophils Percent Auto 77.9 % (45.5-73.1); Platelet Count Result 181 k/mm3 (150-375); Red Blood Count 3.47 M/mm3 (4.2-5.4); Red Cell Distribution Width 12.9 % (11.5-14.5); White Blood Count 9.8 K/mm3 (4.5-10.0)
[2024-05-27] MEDS: DIVALPROEX SODIUM DR 250 MG TABEC PO (09:05)
--- NOTE | 2024-05-27 12:03 | P.DS_ITS ---
DS: Admitting Diagnosis Discharge Date May 27, 2024 Admitting Diagnosis Acute appendicitis DS: Discharge Diagnosis Discharge Diagnosis (1) Perforated appendicitis: Code(s): K35.32 - Acute appendicitis with perforation, localized peritonitis, and gangrene, without abscess Status: Acute Assessment and Plan: Patient be discharged home today. Patient was status Cipro for another 1 week. Discharge instructions written. Follow-up see Dr. Mcclellan in the office in 1 to 2 weeks. DS: Summary Hospital Course Hospital Course: Patient [facility] was seen in emergency room. Acute appendicitis. She was started on IV antibiotics and kept NPO. She was then taken to the operating room she underwent uncomplicated laparoscopic appendectomy. The appendix was perforated the abdomen was thoroughly washed out. No drain was placed. Postoperatively she was doing well in the recovery room and transferred back to the surgical floor for routine postop care. Then a surgical floor pain was managed with oral and IV pain medications. She had no fever. Pain in the right lower quadrant the abdomen is much improved. She was still having some incisional pain which was expected. White cell count on postop day 1 was about 13,000. She remained on IV antibiotics postsurgically because of the perforated appendicitis. Postop day 2 her white blood count was normal. She was doing well and tolerating diet. Was then discharged home in improved condition. Time Spent with Patient Time attestation: Total time spent providing and/or coordinating discharge services: DS: Data Data Completed and Pending Pending studies at discharge: Pending at discharge 05/25/24 15:33 Surgical [PTH] Routine Labs on day of discharge: Labs from last 24 hours 05/27/24 05:49 WBC 9.8 RBC 3.47 L Hgb 10.7 L Hct 32.5 L MCV 93.7 MCH 30.8 MCHC 32.9 RDW 12.9 Plt Count 181 MPV 12.6 H Immature Gran % (Auto) 0.4 Neut % (Auto) 77.9 H Lymph % (Auto) 16.2 L [place] % (Auto) 4.4 Eos % (Auto) 0.9 Baso % (Auto) 0.2 Lymph # (Auto) 1.59 [place] # (Auto) 0.4 Eos # (Auto) 0.1 Baso # (Auto) 0.0 Abs Immat Gran (auto) 0.04 H Absolute Neuts (auto) 7.6 H Absolute Nucleated RBC 0.000 Nucleated RBC % 0.0 Preliminary micro results at discharge 05/24/24 20:58 Blood Culture - Preliminary Blood 05/24/24 20:58 Blood Culture - Preliminary Blood Discharge Plan Discharge Attending physician on discharge: Araceli Mcclellan Discharging Clinician: Corby Merrill Anticipated Discharge Date/Time: 05/27/24 11:51 Patient Disposition: Home, Self-Care Activity: as tolerated Diet: as tolerated and regular Wound Care Instructions: incision open to air Discharge Instructions: DISCHARGE INSTRUCTION SHEET FOR HERNIA, GALLBLADDER AND APPENDIX SURGERIES DR. MCCLELLAN PATIENT TO TAKE HOME 1. May shower in 24 hours, no soaking in bath x 2weeks. 2. Call office for: * Wound increasingly painful or bleeding * Vomiting * Fever of greater than 101 degrees 3. If no bowel movement for three days, take 1 oz. (30 ml) Milk of Magnesia or MiraLax 17g 1 to 2 times daily. 4. No heavy lifting > 10-15 pounds x 6 weeks for hernia repairs and 2 weeks for laparoscopic cholecystectomy or appendectomy. 5. No driving for 3 days or while taking narcotic pain medications. 6. Ice to surgical site for 48 hours (30 min on, then 30 min off). 7. Up walking 10-30 minutes three times per day. 8. Resume previous home medications. 9. Follow-up 10-14 days in office for wound check or as previously scheduled. ([phone]) 10. Oral pain medications prescription to be sent to pharmacy. Take Tylenol 500mg every 6 hours and Ibuprofen 600mg every 6 hours for the first 2 days, then as needed. 11. NUTRITION: Start out by drinking fluids and increase your diet as tolerated. If you experience nausea, try dry toast, crackers, and 7-UP. If nausea or vomiting persists, contact your surgeon?s office. 12. Gallbladders-Low Fat Diet for 2 weeks (send care note of low fat diet) 13. Inguinal Hernias-wear scrotal support for 48 hours 14. Abdominal Hernias-if sent home with abdominal binder, wear for the first 2 weeks (may remove to shower or at night to sleep). Anesthesia used a medication called Sugammadex, female patients may need a second line of protection during sexual activity as this medication can limit control for 7 days following administration. Revised 06/2020 Patient Instructions: Antibiotic Form, Pain Management (DC) Stand Alone Forms: General Discharge Information, Work/School Release IP Follow-up/Referrals: Araceli Mcclellan MD [Physician] - 2 Weeks Discharge Medications: New hydrocodone-acetaminophen 5-325 mg tablet 1 tablet PO Q4H PRN (Reason: pain) Qty: 20 0RF ciprofloxacin HCl [Cipro] 500 mg tablet 500 mg PO Q12H Qty: 14 0RF Continued divalproex 250 mg tablet,delayed release (DR/EC) 252 mg PO DAILY medroxyprogesterone 150 mg/mL syringe 150 mg IM [id number] vilazodone 20 mg tablet 20 mg PO DAILY Date of admission: 05/24/24 20:30 Primary Care Provider: UNKNOWN,DOCTOR Admitting Provider: Araceli Mcclellan Attending physician on admission: Araceli Mcclellan Condition: Stable
== END 2024-05-27 13:03 | disposition home or self-care (01) ==
LOC: ANHED 20:23 → ANH3MEDSUR 21:08
PROVIDERS: Nurse Practitioner Family; Physician Assistant; Admitting Provider Surgery; Emergency Provider Emergency Medicine; Visit Provider Surgery
PROC: 0DTJ4ZZ Resection of Appendix, Percutaneous Endoscopic Approach (ICD-10-PCS; CPT 44970; principal; 2024-05-25 16:00)
DX: K35.33 Acute appendicitis with perforation, localized peritonitis, and gangrene, with abscess (principal); F41.9 Anxiety disorder, unspecified; F32.A Depression, unspecified; J45.909 Unspecified asthma, uncomplicated; Z79.3 Long term (current) use of hormonal contraceptives
CPT/HCPCS: 44970; 36415; 74177; 80048; 80053; 81001; 81025; 83690; 85025; 85027; 87040; 88304; 96361; 96374; 96375; 99285; A9270; G0378; J1100; J1171; J1885; J2003; J2250; J2270; J2405; J2543; J2704; J3010; J7030; J7120; Q9967

== ENCOUNTER 2024-06-14 11:46 | Outpatient (CLI) | payer BC, SELFPAY ==
--- NOTE | ~2024-06-14 | CT_ITS ---
Non-contrast CT scan of the Abdomen and Pelvis Clinical indication: Acute appendicitis Technique: 2.5 mm axial scans were obtained through the abdomen and pelvis without intravenous or or al contrast. Dose reduction technique was used on this scan by utilizing automated exposure control a nd iterative reconstruction technique. The dose-length product (DLP) was 295.33 mGy-cm. COMPARISON: 05/24/2024 Findings: Images through the lung bases reveal no abnormalities. There is no evidence of renal or ureteral calculi. The kidneys and the ureters are nondilated. The liver, spleen, pancreas, gallbladder, and adrenals appear normal. There is no aortic aneurysm. There is no evidence of bowel obstruction. Status post interval presumed appendectomy. No abscess alton dent. Images through the pelvis were performed. There is no evidence of ascites or lymphadenopathy. Urinary bladder unremarkable. No pelvic mass seen. Impression: Status interval presumed appendectomy. No abscess or significant inflammatory change in the right low er quadrant. Reviewed, dictated and finalized at [facility]. RAL TE[employer]ER Impression: Status interval presumed appendectomy. No abscess or significant inflammatory c hange in the right lower quadrant.
== END 2024-06-14 11:47 | disposition home or self-care (01) ==
LOC: MICIMG 11:47
PROVIDERS: PCP Surgery; Visit Provider Surgery
DX: K35.32 Acute appendicitis with perforation, localized peritonitis, and gangrene, without abscess (principal); I96 Gangrene, not elsewhere classified
CPT/HCPCS: 74176